=== PATIENT | male | born 1935 | race Caucasian/White ===

== ENCOUNTER 2016-09-13 19:47 | Observation (INO) | payer MEDICARE ==
[~2016-09-13] VITALS: Ht 172.7 cm; Wt 96.2 kg
[2016-09-13 19:53] VITALS: BP 192/102; PULSE 74; RESP 20; O2SAT 98
--- NOTE | 2016-09-13 20:03 | ED.REPORT ---
HPI-Chest Pain 40 and Over Date of Service Sep 13, 2016 ED Provider: Leonie Brewster MD 80 year old male anticoagulated on warfarin with a history of atrial fibrillation, GERD, and HTN presents to the ER accompanied by his and friend complaining of intermittent palpitations for the last week, worsening this afternoon. He states that his heart seems to "skip beats" while taking his pulse. Associated symptoms of GERD exacerbation, and lightheadedness/dizziness. Patient denies any overt chest pain, nausea, diaphoresis, cough, fever, and chills. No history of [place]. Patient is visiting the area from [place]. Nursing Notes Stated Complaint: HEART ISSUES Chief Complaint: Dysrhythmia/Cardiac Nursing Notes Reviewed: Yes Allergies: Coded Allergies: No Known Allergies (Unverified , 09/13/16) Scheduled Acetaminophen (Acetaminophen) 500 Mg Tablet 1,000 MG PO TID Diltiazem ER (Diltiazem ER) 180 Mg Cap.er.24h 180 MG PO QAM Omeprazole (Omeprazole) 40 Mg Capsule.dr 40 MG PO QAM Simvastatin (Simvastatin) 20 Mg Tablet 20 MG PO HS Tamsulosin (Flomax) 0.4 Mg Capsule 0.4 MG PO HS Warfarin Sodium (Warfarin Sodium) 5 Mg Tablet 2.5 MG PO MON/FRI WARFARIN 2.5 MG MON/WED, 5 MG ALL OTHER DAYS Warfarin Sodium (Warfarin Sodium) 5 Mg Tablet 5 MG PO DAILY EXCEPT MON/FRI WARFARIN 2.5 MG MON/WED, 5 MG ALL OTHER DAYS Scheduled PRN Betamethasone/Propylene Glyc (Betamethasone Dp Aug 0.05% Crm) 15 Gm Cream..g. 1 APPLIC TP BID PRN PRN RASH Cyclobenzaprine (Cyclobenzaprine) 5 Mg Tablet 5 MG PO HS PRN PRN Spasm Dextran 70/Hypromellose (Nature's Tears Eye Drops) 0.1 %-0.3 % Drops 2 DROP BOTH _EYES Q2H PRN PRN DRY EYES Epinephrine (Epipen 2-Rich) 0.3 Mg/0.3 Ml Auto.injct 0.3 MG IM DIRECTED PRN PRN For Anaphyllaxis Oxybutynin Chloride ER (Oxybutynin Chloride ER) 10 Mg Tab.er.24 10 MG PO DAILY PRN PRN URGENCY Tramadol (Tramadol) 50 Mg Tablet 50 MG PO Q6H PRN PRN For Pain General Time Seen by MD: 20:02 Chief Complaint Other (Palpitations) Hx Obtained From: Patient, Spouse Arrived By: Walk-in Sudden in Onset?: No Onset Occurred: 1 week ago Symptom Duration: Intermittent Associated with: Reports: Dizziness, Denies: Cough, non-productive, Cough, productive, Fever, Nausea, Shortness of Breath, Vomiting Pertinent Negative: Pt denies other symptoms Context Related History: Reports: GERD, Hypertension, Denies: Myocardial infarction Similar Sx Previous: No Past Medical History Past Medical History Reports: GERD, Hypertension Reports: Atrial fibrillation Smoking History Unknown if Ever Smoker Social History Other Social History: Good social support, Ambulatory Status Independent Review of Systems Constitutional: Denies: Chills, Fever Respiratory: Denies: Non-productive cough, Shortness of breath Cardiovascular: Reports: Palpitations, Denies: Chest pain GI: Denies: Nausea, Vomiting Musculoskeletal: Denies: Extremity pain, Neck pain Skin: Denies Diaphoresis Neurologic: Reports: Dizziness, Lightheaded Complete sys rev & neg: except as marked. Physical Exam Initial Vital Signs Vital Signs (First) Date Time Temp Pulse Resp B/P Pulse Ox O2 Delivery O2 Flow Rate FiO2 09/13/16 19:53 36.4 74 20 192/102 98 Room Air Initial VS: Reviewed Head / Eyes: Atraumatic, Normocephalic Neck: Supple, Non-tender, Full range of motion Extremities: Vascular intact, Neuro intact, No swelling, No tenderness Skin: Warm, Dry, No cyanosis Neurologic: Alert, Oriented, Nonfocal General/Constitutional: Awake, Alert, Well developed, Well nourished Respiratory / Chest: Breath sounds NL, Breath sounds = bilat, No respiratory distress, No rales, No rhonchi, No wheezing, No stridor, No chest tenderness Cardiovascular: Heart rate NL, Regular rhythm, Heart sounds NL, No murmurs, Peripheral circulation NL, Pulses = bilaterally, No gross BP differential Abdomen: Soft, Non-tender, No guarding, No rebound, No distention Interpretation & Diagnostics Lab Results Interpretation Result Diagram: 09/13/16202609/13/162026 Test 09/13/16 20:27 White Blood Count 5.6th/mm3 (3.8-10.1) Red Blood Count 4.74mil/mm3 (4.40-5.80) Hemoglobin 13.1g/dL (13.8-17.2) Hematocrit 41.1% (41.0-50.0) Mean Corpuscular Volume 86.7fL (81-100) Mean Corpuscular Hemoglobin 27.6pg (27.0-35.0) Mean Corpuscular Hemoglobin Concent 31.9% (32.0-37.0) Red Cell Distribution Width 15.5% (12.3-15.4) Platelet Count 243bil/L (150-400) Neutrophils (%) (Auto) 47.0% (40-74) Lymphocytes (%) (Auto) 38.2% (14-46) Monocytes (%) (Auto) 12.3% (4-12) Eosinophils (%) (Auto) 2.3% (0-5) Basophils (%) (Auto) 0.2% (0-3) Prothrombin Time 27.4sec (8.1-12.5) Prothromb Time International Ratio 2.51ratio Sodium Level 140mEq/L (134-144) Potassium Level 3.9mEq/L (3.5-5.2) Chloride Level 104mEq/L (97-108) Carbon Dioxide Level 20mmol/L (18-29) Blood Urea Nitrogen 27mg/dL (8-27) Creatinine 0.91mg/dL (0.76-1.27) Estimat Glomerular Filtration Rate 85mL/min (>59) Glucose Level 117mg/dL (60-99) Calcium Level 9.1mg/dL (8.5-10.1) Magnesium Level 2.0mg/dL (1.6-2.6) Total Bilirubin 0.2mg/dL (0.0-1.2) Aspartate Amino Transf (AST/SGOT) 16U/L (0-50) Alanine Aminotransferase (ALT/SGPT) 13U/L (0-44) Alkaline Phosphatase 71U/L (25-160) Troponin T < 0.010ug/L (0.0-0.011) Pro-B-Type Natriuretic Peptide 21.39pg/mL (0-486) Total Protein 7.0g/dL (6.4-8.4) Albumin 4.1g/dL (3.4-5.0) ECG Interpretation ECG Interpretation: Sinus rhythm, rate [address] elevation T wave inversion in aVR Time: 20:12 Interpreted by: ED physician X-Ray Chest Interpretation Chest Xray Interpretation: IMPRESSION: 1. Nodular opacity in the left upper lung zone suggestive of a nonspecific pulmonary nodule. Recommend comparison with prior outside studies if available or followup with CT if indicated. 2. No acute consolidation. Dictated by: Miguelangel Stover M.D. on 09/13/2016 at 21:31 Approved by: Miguelangel Stover M.D. on 09/13/2016 at 21:33 View: AP & lat Interpretation / Wet Read by: Wet read ED physician Re-Eval/Medical Decision Med Decision/Clinical Course 80-year-old male with past medical history of A. fib, hypertension, hyperlipidemia, GERD here with palpitations and dyspepsia in his chest. Differential diagnosis includes but is not limited to A. fib versus ACS versus pneumonia versus pleural effusion. Patient's EKG is normal sinus rhythm. CBC and CMP are unremarkable. He is appropriately anticoagulated. His initial troponin is negative. Given his risk factors, I have admitted him to the hospital for formal ACS rule out. He is aware and amenable to admission. Source of Hx: Old records Time of Eval: 21:55 Re-Evaluation/Progress Note: Discussed lab and radiology results and need for admission. Patient is amenable to the plan. All other questions addressed. Consultation : Referral / Consult Name: Nicolas Watson MD Consulted With: Hospitalist Call Returned at: 22:03 Cadd Operator: Agrees with eval, Agrees with plan, Accepts admit Counseled Regarding: Diagnosis, Lab results, Need for admission Discharge & Departure Primary Impression: Chest pain Disposition: ADMITTED TO HOSPITAL Discharge Condition All VS Reviewed: Yes Condition: Stable Scribe Attestation Portions of this note were transcribed by Dony Lamas. I, Dr. Brewster, personally performed the history, physical exam and medical decision-making; I reviewed and confirmed the accuracy of the information in the transcribed note. Signed by: Jj Martinez. 09/13/2016 - 22:06 Leonie Brewster MD Sep 13, 2016 20:03 DONY LAMAS Sep 13, 2016 20:21
[2016-09-13 20:30] VITALS: BP 159/90; PULSE 67; RESP 17; O2SAT 98
[2016-09-13 20:40] LABS: BASOPHILS % (AUTO) 0.2 % (0-3); EOSINOPHILS % (AUTO) 2.3 % (0-5); MONOCYTES % (AUTO) 12.3 % (4-12); Mean Corpuscular Hemoglobin 27.6 pg (27.0-35.0); Mean Corpuscular Volume 86.7 fL (81-100); Platelet Count 243 bil/L (150-400)
[2016-09-13 20:59] LABS: INR 2.51 ratio
[2016-09-13 21:05] LABS: TROPONIN T < 0.010 ug/L (0.0-0.011)
[2016-09-13 21:30] VITALS: BP 164/74; PULSE 68; RESP 16; O2SAT 98
--- NOTE | 2016-09-13 21:34 | DRSVH ---
PROCEDURE: X-RAY CHEST, TWO VIEWS ([id number]) INDICATIONS: chest pain TECHNIQUE: 2 views of the chest were acquired. COMPARISON: None. FINDINGS: Surgical changes and devices: There is a right shoulder prosthesis partially visualized. Lungs and pleura: No pleural effusions or pneumothorax. There is a small nodular opacity in the lef t upper lung zone measuring approximately 5 mm. No acute consolidation. Mediastinum: Mediastinal contours are normal. Heart size is normal. Bones and chest wall: No suspicious bony abnormalities. Soft tissues appear unremarkable. IMPRESSION: 1. Nodular opacity in the left upper lung zone suggestive of a nonspecific pulmonary nodule. Recomm end comparison with prior outside studies if available or followup with CT if indicated. 2. No acute consolidation. Dictated by: Miguelangel Stover M.D. on 09/13/2016 at 21:31 Approved by: Miguelangel Stover M.D. on 09/13/2016 at 21:33
[2016-09-13] MEDS ORDERED: Ondansetron 2 mg/mL 2 mL Inj IVPUSH PRN ×2 (22:05)
[2016-09-13] MEDS ORDERED: Polyethylene Glycol (PEG) 17 Gm Powder PO PRN (22:05)
[2016-09-13] MEDS ORDERED: Alum-Mag Hydrox-Simeth 30 mL Suspension PO PRN ×2 (22:05)
[2016-09-13] MEDS ORDERED: TRAM50TA2 PO (22:27)
[2016-09-13] MEDS ORDERED: OXYB10TA PO (22:27)
[2016-09-13] MEDS ORDERED: DILT180C83 PO (22:27)
[2016-09-13] MEDS ORDERED: WARF5TAB7 PO ×2 (22:27)
[2016-09-13] MEDS ORDERED: BETA15CR38 TP (22:27)
[2016-09-13] MEDS ORDERED: OMEP40CA36 PO (22:27)
[2016-09-13] MEDS ORDERED: EPIN0.3P2 IM (22:27)
[2016-09-13] MEDS ORDERED: SIMV20TA4 PO (22:27)
[2016-09-13] MEDS ORDERED: CYCL5TAB PO (22:27)
[2016-09-13] MEDS ORDERED: ACET-171 PO (22:27)
[2016-09-13] MEDS ORDERED: TAMS0.4C98 PO (22:27)
[2016-09-13] MEDS ORDERED: DEXT15DR24 BOTH_EYES (22:28)
[2016-09-13 22:38] VITALS: BP 164/74; PULSE 68; RESP 16; O2SAT 98
[2016-09-13 23:29] VITALS: BP 157/87; PULSE 56; RESP 18; O2SAT 96
[2016-09-13 23:57] LABS: APPEARANCE,URINE CLEAR (CLEAR,HAZY); COLOR,URINE YELLOW (YELLOW); OCCULT BLOOD,URINE TRACE (NEGATIVE); PH,URINE 6.5 (5.0-8.0); UROBILINOGEN,URINE NORMAL (NORMAL)
--- NOTE | 2016-09-14 00:04 | PCM.HPMED ---
Subjective Date of Service Sep 13, 2016 Primary Provider: Admitting Physician: Nicolas Watson MD Primary Care Physician: Nopcp Attending Physician: Nicolas Watson MD Chief Complaint: palpitations, chest discomfort History of Present Illness: 80yo gentleman with hx of afib on coumadin, htn, hld for the past 1-2 days experienced palpitations with chest discomfort. not described as pain per say, no pressure but "uncomfortable" rated as mild. associated with some dyspnea and lightheadedness. no fevers or chills. no cough. no recent exertional symptoms like chest pain or dyspnea. recently went on [address] Review of Systems: Positive Review of Symptoms mentioned and elaborated on in HPI. Head: Denies H/A, trauma, loss of consciousness. Eyes: Denies visual loss, diplopia. Ears: Denies: deafness, tinnitis, discharge, pain Nose: Denies discharge, obstruction, epistaxis Mouth: Denies sores, gingival bleeding, jaw pain Neck: Denies stiffness, issues swallowing. Respiratory: Denies dyspnea, cough, sputum. Cardiovascular:Denies see hpi orthopnea, peripheral edema Gastrointestinal: Denies melena, abd pain, n/v/d Genitourinary: Denies dysuria, discharge. Skin: Denies: lesions, rashes, pruritus. Musculoskeletal: Denies joint pain, swelling or increased warmth. Neuro: Denies numbness, tingling, weakness. Psyc: Currently denies feelings of anxiety, depression. Allergies Coded Allergies: No Known Allergies (Unverified , 09/13/16) Home Medications see med rec PMH see hpi Surgical History shoulder, prostate, ankle Family History denies Social History Smoking Status: Unknown if Ever Smoker Exam Vital Signs Vital Sign - Last Date Time Temp Pulse Resp B/P Pulse Ox O2 Delivery O2 Flow Rate FiO2 09/13/16 23:29 36.5 56 18 157/87 96 Room Air Exam General: No acute distress. Awake, alert. Head: Normocephalic, atraumatic. Eyes: White sclera. Conjunctiva non-injected. Mouth & Throat: No Bleeding. No erythema, lesions, exudates visualized. Neck: No tender adenopathy. Trachea midline. Respiratory: Clear to auscultation bilaterally. Symmetric chest expansion. Regular work of breathing without use of accessory muscles. Cardiovascular: S1, S2. Regular rate and rhythm without murmurs, rubs or gallops. Pulses 2+ equal bilaterally. Abdomen: Normal bowel sounds x4 quadrants. Soft, non-tender, non-distended. Extremities: Intact. no joint effusions. no lower extremity tenderness, swelling , erythema or increased warmth. Skin: Intact, no lesions, no rash. Neurologic: Awake, alert, oriented x3. No focal deficits. Psychiatric: Appropriate mood and affect. Cooperative. Lab and Diagnostics Result Diagram: 09/13/16202609/13/162026 Assessment & Plan -- chest discomfort, palpitations investigate for cardiac etiology serial troponins, echocardiogram, possible stress test in am. cta chest to eval for pe. aspirin, statin, beta yossi if necessary and as tolerated prn morphine, nitro. cbc, bmp, magnesium, tsh, lipid panel, urine toxicology if cardiac etiologies ruled out will evaluate for alternative differentials. should there be any clinical change in the interm to suggest an alternate diagnosis this will also be pursued. -- afib on coumadin pharmacy to manage warfarin. cont home medications as tolerated -- htn -- hld cont home medications as tolerated -- f/e/n: npo after midnight -- dvt prophylaxis: lovenox Dipso: Admit to obs tele with expected length of stay > 2 midnights. Nicolas Watson MD Sep 14, 2016 00:04
[2016-09-14] MEDS ORDERED: Tolterodine ER 2 mg ER24 Capsule PO PRN (00:29)
[2016-09-14] MEDS ORDERED: Artificial Tears 15 mL Ophthalmic Solution BOTH_EYES PRN (00:35)
[2016-09-14 02:17] LABS: BASOPHILS % (AUTO) 0.2 % (0-3); EOSINOPHILS % (AUTO) 2.4 % (0-5); MONOCYTES % (AUTO) 12.4 % (4-12); Mean Corpuscular Volume 86.8 fL (81-100); NEUTROPHILS % (AUTO) 47.3 % (40-74); Platelet Count 242 bil/L (150-400)
[2016-09-14 02:39] LABS: INR 2.9 ratio
[2016-09-14 03:01] LABS: TROPONIN T < 0.010 ug/L (0.0-0.011)
[2016-09-14 03:05] LABS: Magnesium 1.9 mg/dL (1.6-2.6)
--- NOTE | 2016-09-14 03:12 | NUR ---
Admission Pt arrived on [facility] at 2255 via wheelchair after receiving report for Kole Copeland Rn. Pt denies shortness of breath, chest pain, and general discomfort. Pt sent to the CT and returned. Pt oriented to bed, bathroom, television, phone, and call light. Pt was able to ambulate to the BR independently with a steady gait. Non slip socks on for safety. Telemetry in place. Flomax and Lipitor given per request. Care ongoing.
[2016-09-14 03:21] VITALS: BP 146/77; PULSE 56; RESP 18; O2SAT 97
[2016-09-14 05:48] VITALS: BP 127/74; PULSE 59; RESP 18; O2SAT 97
[2016-09-14 06:28] VITALS: PULSE 53
[2016-09-14 08:00] VITALS: PULSE 76
--- NOTE | 2016-09-14 08:07 | PCM.PHAPRO ---
Progress palpitations, chest discomfort Date -Sep 14-Sep INR 2.5 2.9 INR change 0.4 Warf Dose TOOK SAMPLE CHECKER (5 MG) 2.5 Naman Gaffney Pharm.D Sep 14, 2016 08:07
--- NOTE | 2016-09-14 08:22 | DRSVH ---
PROCEDURE: CT ANGIO CHEST PULMONARY EMBOLISM ([id number]) INDICATIONS: chest pain TECHNIQUE: After the administration of intravenous contrast, 2 mm thick sections acquired from the pulmonary api anh to the posterior costophrenic angles. 3-dimensional maximum intensity projection (MIP) coronal a nd sagittal reformats were then acquired through the thorax. For radiation dose reduction, the follo wing was used: automated exposure control, adjustment of mA and/or kV according to patient size. COMPARISON: None. FINDINGS: Image quality: Excellent. Pulmonary arteries: Pulmonary arteries are normal in size, and demonstrate no intraluminal filling d efects to suggest central pulmonary embolism. Lungs and pleura: Lungs are clear. No pleural effusions or pneumothorax. Central and peripheral ai rways are patent. Mediastinum: Heart size is normal, without pericardial effusion. No mediastinal or hilar adenopathy . Thoracic aorta is normal in caliber and enhancement. Esophagus is normal in caliber, without hiat al hernia. Bones and chest wall: No suspicious bony lesions. Ribs and thoracic spine appear intact throughout. Thyroid gland is heterogeneous and may contain small nodules. No axillary or supraclavicular adeno demi. Abdomen: Visualized upper abdominal solid organs appear normal in the early arterial phase of enhanc ement. A low density nodule in the left kidney is noted, probably a cyst. IMPRESSION: 1. No evidence for central pulmonary embolism. 2. Heterogeneous thyroid which may contain small nodules. If clinically indicated, ultrasound followu p is suggested. Dictated by: Jose Luis Graham M.D. on 09/14/2016 at 8:18 Approved by: Jose Luis Graham M.D. on 09/14/2016 at 8:21
[2016-09-14] MEDS ORDERED: Pantoprazole 40 mg ER24 Tablet PO SCH (08:30)
[2016-09-14] MEDS ORDERED: Diltiazem CD 180 mg ER24 Capsule PO SCH (08:30)
[2016-09-14 10:00] VITALS: BP 154/82; PULSE 64; RESP 16; O2SAT 97
--- NOTE | 2016-09-14 12:02 | DRSVH ---
[facility] [address] [place] [address] Echocardiogram Report Name: LINDA DEJESUS Study Date: 09/14/2016 Height: 68 in Hospital Exam Location: [facility] Weight: 212 lb Gender: Male BSA: 2.1 m2 : 1935 Age: 80 yrs BP: 127/74 m mHg Reason For Study: Chest pain Ordering Physician: HOSPITALIST [facility] Performed By: Jesús Pham Referring Physician: BRIAN PEREZ Interpretation Summary The ejection fraction is estimated to be 60-65%. A mobile echolucency is noted behind the AML in apical 4C views. Caonsider SANJIV ot evaluate this further if clincally indicated. The aortic valve is slightly calcified. The ascending aorta is mild-moderately enlarged. Procedure: A two-dimensional transthoracic echocardiogram with color flow and Doppler was performed. The study quality was technically adequate. There is no prior echocardiogram noted for this patient. The patient was in normal sinus rhythm during the exam. The heart rate ranged between 61-73 bpm during the study. Left Ventricle: LV could not be reliably measured in parasternal window. Grossly, LV size and wall thickness are within normal limits. The ejection fraction is estimated to be 60-65%. Left ventricular wall motion is normal. Right Ventricle: The right ventricle is normal in size, thickness and function. Atria: The left atrial size is normal. A mobile echolucency is noted behind the AML in apical 4C views. Caonsider SANJIV ot evaluate this further if clincally indicated. Right atrial size is normal. The interatrial septum is intact with no evidence for an atrial septal defect. Mitral Valve: The mitral valve leaflets appear to open well. The mitral valve leaflets are slightly calcified. There is no mitral regurgitation noted. Aortic Valve: The aortic valve is trileaflet. The aortic valve is slightly calcified. There is discrete nodular thickening of the non- coronary cusp. There is no hemodynamically significant valvular aortic stenosis. There is trace aortic regurgitation. Tricuspid Valve: The tricuspid valve is normal. Pulmonary artery pressures cannot be estimated because of the lack of a measurable TR jet velocity. Pulmonic Valve: The pulmonic valve leaflets are thin and pliable; valve motion is normal. There is mild pulmonic regurgitation. Great Vessels: The aortic root is normal size. The ascending aorta is mild- moderately enlarged. The aortic arch is mildly enlarged. The pulmonary artery is normal size. The IVC is of normal diameter and collapses greater than 50% with a sniff. This suggests a low right atrial pressure of 3 mm Hg. Pericardium/ Pleura There is no pericardial effusion. There is no pleural effusion. MMode/2D Measurements & Calculations EPSS: 0.36 cm LA A2 area RA long axis LVOT diam: 2.4 cm AoV Openin.7 cm RA area Ao root diam: 3.4 cm LA A4 area asc Aorta Diam: 4.0 cm : 12.7 cm Ao Arch Diam (Prox LA length (vol) RA vol: 27.4 ml Trans): 3.2 cm RA LA vol: 59.3 ml : 13.1 mm2 LA vol index IVC diam: 1.9 cm RVD1 (basal) RVD2 (mid): 3.2 cm TAPSE: 2.7 cm Doppler Measurements & Calculations Ao V2 max: 167.6 cm/secMV E max anderson MV E/A: 0.54 PA V2 max Ao max P.2 mmHg : 46.0 cm/sec Med Peak E' Anderson : 118.0 cm/sec Ao mean P.2 mmHg MV A max anderson PA mean PG LVOT Max Anderson : 85.2 cm/sec E/E' med: 9.3 : 3.1 mmHg : 115.2 cm/sec Lat Peak E' Anderson DAYSI(I,D): 3.5 cm E/E' lat: 8.2 sev ratio: 0.78 E/e' average: 8.8 MV dec time: 0.24 sec Ao V2 mean LV V1 max PG PA V2 mean : 117.6 cm/sec : 82.4 cm/sec Ao V2 VTI: 35.8 cmLV V1 VTI: 27.9 cmPA pr(Accel) : 33.8 mmHg DAYSI(V,D): 3.1 cm2 DAYSI indexed to BSA (cm^2/m^2): 1.7 Electronically signed by: Felipe Briscoe on Reading Physician:09/14/2016 12:01 PM
[2016-09-14 12:50] VITALS: BP 165/90; PULSE 64; RESP 16; O2SAT 98
--- NOTE | 2016-09-14 13:00 | NUR ---
Case Management: DELTA given and explained to pt. Eve CHOI RN
--- NOTE | 2016-09-14 16:20 | NUR ---
Social Work: Initial Assessment Data & Assessment: See Initial Assessment. EMR reviewed. Patient is a 80 y/o male that admitted with chest pain per H&P. SW met with patient and patient's spouse at the bedside to discuss discharge planning, SW role reviewed and initial assessment complete. Patient's insurance is [employer]. Patient has no VA or LTC insurance. Patient's NOK is his Myesha Lama [phone]. Patient does not have Advance Directive or DPOA and declined information. Patient lives at home with his in a single story home where he is independent at baseline. Patient does drive. Patient does not have any HH or SNF history. Patient ambulates independently, but he has a walker if needed. Patient is likely to discharge home no needs. SW will dontinue to follow Plan: Patient is likely to discharge home with spouse via POV with no needs. SW will continue to follow. raman Wilson LMSW, ILENE Addendum: 09/14/16 at 1631 by RAMAN ELLIS Amended: Links added.
--- NOTE | 2016-09-14 16:27 | DRSVH ---
PROCEDURE: 1 DAY TREADMILL STRESS TEST Rest and exercise myocardial perfusion SPECT with gated imaging and ejection fraction RADIOPHARMACEUTICAL: 11.1 mCi Tc-99m tetrafosmin IV at rest and 31.9 mCi Tc-99m tetrafosmin IV at pea k exercise. [id number] was performed. INDICATIONS: 80 year-old man with chest pain and atrial fibrillation. Evaluate heart ischemia. TECHNIQUE: Radiopharmaceutical was injected at peak stress test, and also at rest. SPECT images wer e obtained. SPECT myocardial perfusion images were displayed in short axis, horizontal long axis, an d vertical long axis views. Gated images were reviewed using [employer] software. COMPARISON: None. CARDIAC STRESS: A standard Sherwin treadmill exercise tolerance test was performed by the patient under the supervision of an attending staff. The patient exercised for 5 minutes and 59 seconds; functional aerobic impai rment (LEAH) is -20 %. Hemodynamic data: There is normal blood pressure and heart rate response to exercise stress. Patien t achieved 95% of maximum predicted heart rate at peak exercise. Symptoms: Patient denied chest pain during exercise. EKG: No diagnostic EKG changes of ischemia; occasional PVCs. FINDINGS: Raw data: There is good myocardial labeling by radiotracer. No significant motion artifacts. Left ventricle function: Gated images demonstrate normal left ventricle wall thickening. No segment al wall motion abnormality. No transient ischemic dilation. The left ventricle resting end-diastoli c volume is normal. Left ventricle stress ejection fraction is 52%; normal values are above 45%. Myocardial perfusion: There is normal distribution of activity in the left and right ventricular kaye cardium. No fixed or reversible perfusion defects. IMPRESSION: 1. Normal myocardial perfusion images. 2. Normal left ventricular volume and systolic function. 3. Above average exercise capacity. No chest pain or diagnostic EKG changes for ischemia. PQRS ATTESTATIONS: Measure 322 - Is this imaging test primarily performed on a low-risk surgery patient for preoperative evaluation within 30 days preceding their low-risk non-cardiac surgery? Low-risk surgery is defined as cardiac or myocardial infarction less than 1%, including (but not limited to) endoscopic pr ocedures, superficial procedures, cataract surgery, and excisional breast surgery: Answer: No Measure 323 - Is this imaging test performed primarily for the monitoring of an asymptomatic patient who had percutaneous coronary intervention on the visit date or within 2 years of the visit date? An swer: No Measure 324 - Is this imaging test performed primarily for the initial detection and risk assessment on an asymptomatic, low coronary heart disease patient? Low CHD risk definition = clinicians should consider the maximum number of available patient factors used to estimate risk based on [place] (A TP III criteria), typically age, gender, diabetes, smoking status, and use of blood pressure medicati on, and integrate age appropriate estimates for missing elements, such as LDL or standard blood press ure. Answer: No Dictated by: Jose Luis Graham M.D. on 09/14/2016 at 16:23 Approved by: Jose Luis Graham M.D. on 09/14/2016 at 16:26
--- NOTE | 2016-09-14 16:57 | PCM.DIMED ---
Discharge Instructions Date of Service Sep 14, 2016 Dates of Hospitalization Sep 13, 2016 at 22:34 Discharge Diagnosis Discharge Diagnosis Chest pain OH ruled out, etiology unclear GERD Paroxysmal a fib hypertension Diet Low fat, Low Sodium, Heart Healthy Activity No restrictions Call your provider Chest pain Patient Instructions Follow-up plan Please followup with your primary care provider as soon as possible Follow-up with PCP in: 1 week Antonella Barnes MD Sep 14, 2016 16:57
[2016-09-14] MEDS ORDERED: OMEP40CA36 PO (16:58)
--- NOTE | 2016-09-14 17:08 | PCM.DC.MED ---
Discharge Summary Date of Service Sep 14, 2016 Dates of Hospitalization Date of Hospital Admission Sep 13, 2016 at 22:34 Date of Discharge: Sep 14, 2016 Providers: Admitting Physician: Brian Watson MD Primary Care Physician: Nopcp Attending Physician: Brian Watson MD Diagnosis at Time of Discharge Diagnosis at Time of Discharge 1. Chest Pain., poa, resolved 2. GERD, poa, possible active 3- Paroxymal a fib, poa, stabe. 4. BPH, poa, stable 5. 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 Possible Pulmonary Nodule, TRANG Lung noted on CXR, poa, chronic Procedures XRay, CTs & MRIs PROCEDURE: CT ANGIO CHEST PULMONARY EMBOLISM ([id number]) INDICATIONS: chest pain TECHNIQUE: After the administration of intravenous contrast, 2 mm thick sections acquired from the pulmonary apices to the posterior costophrenic angles. 3-dimensional maximum intensity projection (MIP) coronal and sagittal reformats were then acquired through the thorax. For radiation dose reduction, the following was used: automated exposure control, adjustment of mA and/or kV according to patient size. COMPARISON: None. FINDINGS: Image quality: Excellent. Pulmonary arteries: Pulmonary arteries are normal in size, and demonstrate no intraluminal filling defects to suggest central pulmonary embolism. Lungs and pleura: Lungs are clear. No pleural effusions or pneumothorax. Central and peripheral airways are patent. Mediastinum: Heart size is normal, without pericardial effusion. No mediastinal or hilar adenopathy. Thoracic aorta is normal in caliber and enhancement. Esophagus is normal in caliber, without hiatal hernia. Bones and chest wall: No suspicious bony lesions. Ribs and thoracic spine appear intact throughout. Thyroid gland is heterogeneous and may contain small nodules. No axillary or supraclavicular adenopathy. Abdomen: Visualized upper abdominal solid organs appear normal in the early arterial phase of enhancement. A low density nodule in the left kidney is noted , probably a cyst. IMPRESSION: 1. No evidence for central pulmonary embolism. 2. Heterogeneous thyroid which may contain small nodules. If clinically indicated, ultrasound followup is suggested. Patient Name: LINDA DEJESUS MR#: [id number] [place] [facility] [place] Phys: Leonie Brewster MD Date of Service: 09/13/162001 PROCEDURE: X-RAY CHEST, TWO VIEWS ([id number]) INDICATIONS: chest pain TECHNIQUE: 2 views of the chest were acquired. COMPARISON: None. FINDINGS: Surgical changes and devices: There is a right shoulder prosthesis partially visualized. Lungs and pleura: No pleural effusions or pneumothorax. There is a small nodular opacity in the left upper lung zone measuring approximately 5 mm. No acute consolidation. Mediastinum: Mediastinal contours are normal. Heart size is normal. Bones and chest wall: No suspicious bony abnormalities. Soft tissues appear unremarkable. IMPRESSION: 1. Nodular opacity in the left upper lung zone suggestive of a nonspecific pulmonary nodule. Recommend comparison with prior outside studies if available or followup with CT if indicated. 2. No acute consolidation. Cardiac Echo Impression Echocardiogram Report Name: LINDA DEJESUS Study Date: 09/14/2016 Height: 68 in Hospital Exam Location: [facility] Weight: 212 lb Gender: Male BSA: 2.1 m2 : 1935 Age: 80 yrs BP: 127/74 m mHg Reason For Study: Chest pain Ordering Physician: [facility] Performed By: Jesús Pham Referring Physician: BRIAN WATSON Interpretation Summary The ejection fraction is estimated to be 60-65%. A mobile echolucency is noted behind the AML in apical 4C views. Caonsider SANJIV ot evaluate this further if clincally indicated. The aortic valve is slightly calcified. The ascending aorta is mild-moderately enlarged. Procedure: A two-dimensional transthoracic echocardiogram with color flow and Doppler was performed. The study quality was technically adequate. There is no prior echocardiogram noted for this patient. The patient was in normal sinus rhythm during the exam. The heart rate ranged between 61-73 bpm during the study. Left Ventricle: LV could not be reliably measured in parasternal window. Grossly, LV size and wall thickness are within normal limits. The ejection fraction is estimated to be 60-65%. Left ventricular wall motion is normal. Right Ventricle: The right ventricle is normal in size, thickness and function. Atria: The left atrial size is normal. A mobile echolucency is noted behind the AML in apical 4C views. Caonsider SANJIV ot evaluate this further if clincally indicated. Right atrial size is normal. The interatrial septum is intact with no evidence for an atrial septal defect. Mitral Valve: The mitral valve leaflets appear to open well. The mitral valve leaflets are slightly calcified. There is no mitral regurgitation noted. Aortic Valve: The aortic valve is trileaflet. The aortic valve is slightly calcified. There is discrete nodular thickening of the non- coronary cusp. There is no hemodynamically significant valvular aortic stenosis. There is trace aortic regurgitation. Tricuspid Valve: The tricuspid valve is normal. Pulmonary artery pressures cannot be estimated because of the lack of a measurable TR jet velocity. Pulmonic Valve: The pulmonic valve leaflets are thin and pliable; valve motion is normal. There is mild pulmonic regurgitation. Great Vessels: The aortic root is normal size. The ascending aorta is mild- moderately enlarged. The aortic arch is mildly enlarged. The pulmonary artery is normal size. The IVC is of normal diameter and collapses greater than 50% with a sniff. This suggests a low right atrial pressure of 3 mm Hg. Pericardium/ Pleura There is no pericardial effusion. There is no pleural effusion. Other Diagnostics Patient Name: LINDA DEJESUS MR#: [id number] Location[place] [facility] [place] Ordering Phys: Brian Watson MD Date of Service: 09/14/16 0451 PROCEDURE: 1 DAY TREADMILL STRESS TEST Rest and exercise myocardial perfusion SPECT with gated imaging and ejection fraction RADIOPHARMACEUTICAL: 11.1 mCi Tc-99m tetrafosmin IV at rest and 31.9 mCi Tc-99m tetrafosmin IV at peak exercise. [id number] was performed. INDICATIONS: 80 year-old man with chest pain and atrial fibrillation. Evaluate heart ischemia. TECHNIQUE: Radiopharmaceutical was injected at peak stress test, and also at rest. SPECT images were obtained. SPECT myocardial perfusion images were displayed in short axis, horizontal long axis, and vertical long axis views. Gated images were reviewed using AutoQUANT software. COMPARISON: None. CARDIAC STRESS: A standard Sherwin treadmill exercise tolerance test was performed by the patient under the supervision of an attending staff. The patient exercised for 5 minutes and 59 seconds; functional aerobic impairment (LEAH) is -20 %. Hemodynamic data: There is normal blood pressure and heart rate response to exercise stress. Patient achieved 95% of maximum predicted heart rate at peak exercise. Symptoms: Patient denied chest pain during exercise. EKG: No diagnostic EKG changes of ischemia; occasional PVCs. FINDINGS: Raw data: There is good myocardial labeling by radiotracer. No significant motion artifacts. Left ventricle function: Gated images demonstrate normal left ventricle wall thickening. No segmental wall motion abnormality. No transient ischemic dilation. The left ventricle resting end-diastolic volume is normal. Left ventricle stress ejection fraction is 52%; normal values are above 45%. Myocardial perfusion: There is normal distribution of activity in the left and right ventricular myocardium. No fixed or reversible perfusion defects. IMPRESSION: 1. Normal myocardial perfusion images. 2. Normal left ventricular volume and systolic function. 3. Above average exercise capacity. No chest pain or diagnostic EKG changes for ischemia. PQRS ATTESTATIONS: Measure 322 - Is this imaging test primarily performed on a low-risk surgery patient for preoperative evaluation within 30 days preceding their low-risk non- cardiac surgery? Low-risk surgery is defined as cardiac or myocardial infarction less than 1%, including (but not limited to) endoscopic procedures, superficial procedures, cataract surgery, and excisional breast surgery: Answer : No Measure 323 - Is this imaging test performed primarily for the monitoring of an asymptomatic patient who had percutaneous coronary intervention on the visit date or within 2 years of the visit date? Answer: No Measure 324 - Is this imaging test performed primarily for the initial detection and risk assessment on an asymptomatic, low coronary heart disease patient? Low CHD risk definition = clinicians should consider the maximum number of available patient factors used to estimate risk based on Walton ( ATP III criteria), typically age, gender, diabetes, smoking status, and use of blood pressure medication, and integrate age appropriate estimates for missing elements, such as LDL or standard blood pressure. Answer: No Dictated by: Jose Luis Graham M.D. on 09/14/2016 at 16:23 Approved by: Jose Luis Graham M.D. on 09/14/2016 at 16:26 Brief History 80yo gentleman with hx of afib on coumadin, htn, hld for the past 1-2 days experienced palpitations with chest discomfort. not described as pain per say, no pressure but "uncomfortable" rated as mild. associated with some dyspnea and lightheadedness. no fevers or chills. no cough. no recent exertional symptoms like chest pain or dyspnea. recently went on [address] Hospital Course 1. Chest Pain., poa, resolved -Low risk stress mibi, negative troponins, echo with out ischemic changes -etiology of cest discomfort could be GERD -follow up with pcp 2.Palpitaions, poa, active -we noted sone sinus arrythmia and pvc's -primary care provider could consider changing patient dilt to a betablocker for sumptom help if this continue to bother patient 2. GERD, poa, stable -will have patient increase prilosec to bid -follow up with pcp soon 3- Paroxymal a fib, poa, stable. 4. BPH, poa, stable 5. 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 6. 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 Possible Pulmonary Nodule, TRANG Lung noted on CXR, poa, chronic -review old films or consider CT chest Exam Vital Signs (Last) Date Time Temp Pulse Resp B/P Pulse Ox O2 Delivery O2 Flow Rate FiO2 09/14/16 12:50 36.4 64 16 165/90 98 Room Air Exam Eyes; bogdan eom intact ENMT; well hydrated, no lesions CV; S1S2 present, regular, no murmur Resp; clear GI; soft non acute benign Skin; no rash Test 09/13/16 20:27 09/13/16 23:51 09/14/16 02:10 09/14/16 08:30 Pro-B-Type Natriuretic Peptide 21.39pg/mL (0-486) Urine Color Yellow (YELLOW) Urine Appearance Clear (CLEAR,HAZY) Urine pH 6.5 (5.0-8.0) Urine Specific Crawford 1.020 (1.003-1.035) Urine Protein Negativemg/dL (NEG,TRACE) Urine Glucose (UA) Negativemg/dL (NEGATIVE) Urine Ketones Negativemg/dL (NEGATIVE) Urine Occult Blood Trace (NEGATIVE) Urine Nitrite Negative (NEGATIVE) Urine Bilirubin Negative (NEGATIVE) Urine Urobilinogen Normalmg/dL (NORMAL) Urine Leukocyte Esterase Negative (NEGATIVE) Urine RBC 3-10/hpf (0-2) Urine WBC 0-5/hpf (0-5) Urine Epithelial Cells Occasional/hpf (NONE-MOD) Urine Crystals None seen (NONE SEEN) Urine Bacteria Few/hpf (NONE-FEW) Urine Hyaline Casts None/lpf (NONE) Urine Granular Casts None seen (NONE SEEN) Urine Waxy Casts None seen (NONE SEEN) Urine Red Blood Cell Casts None seen (NONE SEEN) Urine White Blood Cell Casts None seen (NONE SEEN) Urine Mucus None seen (None Seen) Urine Trichomonas None seen (NONE SEEN) Urine Yeast None (NONE SEEN) Urinalysis Comment None Urine Culture Reflexed Not indicated White Blood Count 4.9th/mm3 (3.8-10.1) Red Blood Count 4.25mil/mm3 (4.40-5.80) Hemoglobin 11.9g/dL (13.8-17.2) Hematocrit 36.9% (41.0-50.0) Mean Corpuscular Volume 86.8fL (81-100) Mean Corpuscular Hemoglobin 28.0pg (27.0-35.0) Mean Corpuscular Hemoglobin Concent 32.2% (32.0-37.0) Red Cell Distribution Width 15.4% (12.3-15.4) Platelet Count 242bil/L (150-400) Neutrophils (%) (Auto) 47.3% (40-74) Lymphocytes (%) (Auto) 37.5% (14-46) Monocytes (%) (Auto) 12.4% (4-12) Eosinophils (%) (Auto) 2.4% (0-5) Basophils (%) (Auto) 0.2% (0-3) Prothrombin Time 31.7sec (8.1-12.5) Prothromb Time International Ratio 2.90ratio Sodium Level 139mEq/L (134-144) Potassium Level 4.3mEq/L (3.5-5.2) Chloride Level 103mEq/L (97-108) Carbon Dioxide Level 22mmol/L (18-29) Blood Urea Nitrogen 25mg/dL (8-27) Creatinine 0.86mg/dL (0.76-1.27) Estimat Glomerular Filtration Rate 91mL/min (>59) Glucose Level 102mg/dL (60-99) Calcium Level 9.0mg/dL (8.5-10.1) Magnesium Level 1.9mg/dL (1.6-2.6) Total Bilirubin 0.2mg/dL (0.0-1.2) Aspartate Amino Transf (AST/SGOT) 14U/L (0-50) Alanine Aminotransferase (ALT/SGPT) 10U/L (0-44) Alkaline Phosphatase 61U/L (25-160) Total Protein 6.2g/dL (6.4-8.4) Albumin 3.7g/dL (3.4-5.0) Triglycerides Level 88mg/dL (0-149) Cholesterol Level 139mg/dL (100-199) LDL Cholesterol, Calculated 75.400mg/dL (0-99) VLDL Cholesterol 17.600mg/dL HDL Cholesterol 46mg/dL (>39) Cholesterol/HDL Ratio 3.02 (0.0-4.4) Thyroid Stimulating Hormone (TSH) 1.360uIU/mL (0.450-4.500) Troponin T < 0.010ug/L (0.0-0.011) Discharge Medications Discharge Medications Acetaminophen (Acetaminophen) 500 Mg Tablet 1,000 MG PO TID (Reported) Diltiazem ER (Diltiazem ER) 180 Mg Cap.er.24h 180 MG PO QAM (Reported) Omeprazole (Omeprazole) 40 Mg Capsule.dr 40 MG PO BID Prescribed by: Antonella BARNES MD Simvastatin (Simvastatin) 20 Mg Tablet 20 MG PO HS (Reported) Tamsulosin (Flomax) 0.4 Mg Capsule 0.4 MG PO HS (Reported) Warfarin Sodium (Warfarin Sodium) 5 Mg Tablet 2.5 MG PO MON/FRI (Reported) WARFARIN 2.5 MG MON/WED, 5 MG ALL OTHER DAYS Warfarin Sodium (Warfarin Sodium) 5 Mg Tablet 5 MG PO DAILY EXCEPT MON/FRI ( Reported) WARFARIN 2.5 MG MON/WED, 5 MG ALL OTHER DAYS As needed Betamethasone/Propylene Glyc (Betamethasone Dp Aug 0.05% Crm) 15 Gm Cream..g. 1 APPLIC TP BID PRN PRN RASH (Reported) Cyclobenzaprine (Cyclobenzaprine) 5 Mg Tablet 5 MG PO HS PRN PRN Spasm (Reported ) Dextran 70/Hypromellose (Nature's Tears Eye Drops) 0.1 %-0.3 % Drops 2 DROP BOTH _EYES Q2H PRN PRN DRY EYES (Reported) Epinephrine (Epipen 2-Rich) 0.3 Mg/0.3 Ml Auto.injct 0.3 MG IM DIRECTED PRN PRN For Anaphyllaxis (Reported) Oxybutynin Chloride ER (Oxybutynin Chloride ER) 10 Mg Tab.er.24 10 MG PO DAILY PRN PRN URGENCY (Reported) Tramadol (Tramadol) 50 Mg Tablet 50 MG PO Q6H PRN PRN For Pain (Reported) Followup Plan Follow-up plan Please followup with your primary care provider as soon as possible Discharge Diet: Low fat, Low Sodium, Heart Healthy Discharge Activity: No restrictions Follow-up with PCP in: 1 week Time spent 40 minutes discharge time today, time now 5:15 pm Antonella Barnes MD Sep 14, 2016 17:08
--- NOTE | 2016-09-14 18:30 | NUR ---
Discharge Reviewed d/c instructions with pt and family in room including care notes and new prescriptions, pt signed and given originals, copies to chart. IV d/c intact, tele removed. VS stable at d/c. All belongings packed by pt and taken with them. Discharge summary faxed to PCP in [place] per instructions from Dr Wallace, pt to have PCP call [facility] on Saturday to request medical record just in case. Pt walked off unit on foot accompanied by family with all belongings.
== END 2016-09-14 17:52 | disposition home or self-care (01) ==
LOC: SED 19:47 → MPC 22:34
PROVIDERS: ADMIT Family Medicine; ATTEND Family Medicine
DX: R07.89 Other chest pain (principal); R00.2 Palpitations; I48.0 Paroxysmal atrial fibrillation; N40.0 Benign prostatic hyperplasia without lower urinary tract symptoms; I10 Essential (primary) hypertension; E04.9 Nontoxic goiter, unspecified; E78.5 Hyperlipidemia, unspecified; K21.9 Gastro-esophageal reflux disease without esophagitis; Z79.01 Long term (current) use of anticoagulants; Z79.899 Other long term (current) drug therapy
CPT/HCPCS: 36415; 71020; 71275; 78452; 80053; 80061; 81000; 83036; 83735; 83880; 84443; 84484; 85025; 85610; 93005; 93017; 99285; A9502; C8929; G0378; Q9967